=== PATIENT | female | born 1975 | race African-American/Black ===

== ENCOUNTER 2016-10-04 07:13 | Emergency (ER) | payer OTHER ==
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
[~2016-10-04 07:13] MED LIST: HYCODAN60 ML 5MG/ PO; LEVAQUIN750 MG PO
== END 2016-10-04 08:35 | disposition home or self-care (01) ==
LOC: CED 07:13
DX: S16.1XXA Strain of muscle, fascia and tendon at neck level, initial encounter (principal); S39.012A Strain of muscle, fascia and tendon of lower back, initial encounter; J45.909 Unspecified asthma, uncomplicated; F17.200 Nicotine dependence, unspecified, uncomplicated; Z98.890 Other specified postprocedural states; V89.2XXA Person injured in unspecified motor-vehicle accident, traffic, initial encounter
CPT/HCPCS: 72040; 72100; 72170; 84703; 96372; 99284; J1885